=== PATIENT | female | born 1990 | race Caucasian/White ===

== ENCOUNTER 2017-01-23 08:00 | Emergency (ER) | payer BC ==
[~2017-01-23] VITALS: Ht 160 cm; Wt 71.8 kg
[2017-01-23 08:02] VITALS: TEMP 36.5; Ht 160 cm; Wt 71.8 kg
[2017-01-23] MEDS ORDERED: CYCLOBENZAPRINE HCL 10 MG TAB PO STA (08:23)
[2017-01-23] MEDS ORDERED: IBUP-1050 PO (08:23)
[2017-01-23] MEDS ORDERED: CYCL5TAB PO (08:27)
[2017-01-23] MEDS ORDERED: METH4PAK PO (08:27)
[2017-01-23] MEDS ORDERED: GABA1CAP4 PO (08:27)
--- NOTE | 2017-01-23 08:29 | EMERGENCY ROOM VISIT NOTE ---
ED Visit Note First contact with patient: 08:07 CHIEF COMPLAINT: Low back pain HISTORY OF PRESENT ILLNESS: This 26-year-old female patient presents to the emergency department, ambulatory, with a male friend, complaining of pain in the low back which began 3 days ago. The pain was gradual in onset, is now constant and worse with movement. The pain begins in her low back, and radiates down into her hips and the posterior aspect of both legs, worse on the right. Patient states last night, she didn't down to grab something out of the medicine cabinet, and if she stood back up she began experiencing "charley horse -like pain". The patient states the pain seemed to improve yesterday while at work, however this morning, the patient was barely able to walk. The patient was seen in the emergency department at a hospital in [place] last year for similar pain. She has not followed up with a primary care provider for her discomfort. The patient notes the pain as sharp and a 5/10. The patient has taken 600 mg ibuprofen this morning and used ice, without any relief of the pain. The patient denies any loss of control of their bowel or bladder functions. There has been no leg numbness or weakness, and no change in sensation. No nausea or vomiting or abdominal pain. No chest pain or shortness of breath. The patient has not had prior back injuries, but does have a history of sciatica as described previously. No dysuria or increased urinary frequency. The patient denies injury. REVIEW OF SYSTEMS: A 10 system review of systems was performed with positives and pertinent negatives listed in the history of present illness. All other systems were reviewed and are negative. ALLERGIES: None MEDICATIONS: Ceclor PMH: None SOCIAL HISTORY: The patient recently moved to the area. She is currently working in a warehouse doing physical labor. Denies drug, alcohol, tobacco use. PHYSICAL EXAM: VITALS: Vitals are noted on the nurse's note and reviewed by myself. Vital signs stable. GENERAL: This is a 26-year-old female, in no acute distress, nondiaphoretic, well-developed well-nourished. SKIN: The skin was without rashes, erythema, edema, or bruising. Capillary refill less than 2 seconds. NECK: Supple without nuchal rigidity. No cervical spine tenderness. No paraspinous muscle tenderness. HEART: Regular rate and rhythm without murmurs gallops or rubs. LUNGS: Clear to auscultation bilaterally without wheezes, rales or rhonchi. ABDOMEN: Positive bowel sounds x 4. Normal tympanic percussion. Soft, nontender, without masses or organomegaly. Menendez sign negative. MUSCULOSKELETAL: No muscle atrophy, erythema, or edema noted of the back. There is no tenderness over the lumbar spinous processes. There is mild tenderness over the paraspinous muscles bilaterally. There is no tenderness over the thoracic spine or paraspinous muscles. There are no muscle spasms present. The patient is slow to move around with maximum tenderness with moving from a lying to a sitting position. Positive straight leg raise test on the right. NEURO: Patient was alert and oriented to person place and time. Normal sensation to light and sharp touch. Deep tendon reflexes 2+ in the lower extremities. Dorsalis pedis pulse 2+ bilaterally. Strength 5/5 and equal in the bilateral lower extremities. EMERGENCY DEPARTMENT COURSE: The patient was seen and evaluated as above. I discussed with her treatment for sciatica, and encouraged her to follow up outpatient with a PCP. The patient states she just moved to the area and does not have a local doctor. She states she does not know if she has insurance at this time. I offered to have our caseworkers help provide the patient with options for getting established with a PCP, and the patient began crying. She states she does not have the money to see a doctor and states that Physical Therapy is just a waste of time and money, as she had a poor experience previously. The patient is agreeable to talking with the bell valet, and I did discuss the patient with her. The patient was given 10 mg cyclobenzaprine in the emergency department, and did report mild improvement in her symptoms. The patient was discharged home in good condition. The patient's BP was monitored throughout her care and was normal. DIFFERENTIAL DIAGNOSIS: Lumbar strain, fracture, sciatica, disc protrusion, degenerative disc disease, malignancy, and others DIAGNOSIS: Lumbar strain with sciatica DISCHARGE INSTRUCTIONS AND TREATMENT: You have been treated in the Emergency Department for Back Pain. You have been prescribed gabapentin to be used for pain control. This is not a narcotic medication, however, this may make you sleepy, and you should not take this medication and go to work or drive until you know how it will affect you. This medication works well when you take it regularly. You have been prescribed Flexeril (cyclobenzaprine) 1-2 tabs orally, three times per day. Do NOT exceed 30 mg (6 tabs) per day. Take your first dose at bedtime as it can make you drowsy. Always take all medications as prescribed. Do not take any NSAIDs (ibuprofen, naproxen, Motrin, Aleve, Advil) while taking Medrol Dosepak. You have been prescribed a Medrol Dosepak. This is a steroid which will help decrease your inflammation, redness, and itch. Take the medicine as prescribed. Take the ENTIRE 6 day course of the steroids. For pain control, you can use the following keux-awg-nqycrvu medicines (if >12 yo): Ibuprofen(Motrin, Advil) may be used for fever or pain. Use 600mg every six hours as needed. Take with food. Avoid using more than 2400mg in a 24 hour period. Do not use 2400mg per day for more than three consecutive days without physician direction. Prolonged inappropriate use can lead to stomach upset or ulcers. (AND/OR) Acetaminophen(Tylenol) may be used for fever or pain. Use 1000mg every six hours as needed. Avoid using more than 3000mg in a 24 hour period. If this is an acute injury, ice can be applied to the area of pain for the first 3 days to help decrease pain and inflammation. After the first 3 days, a heating pad can be used over the area for continued soothing relief. You should schedule a follow-up appointment in 2-3 days with your Primary Care Provider for further evaluation and treatment of your back pain. Return to the Emergency Department if your current symptoms worsen despite treatment course outlined above, or if you develop any of the following symptoms : intractable pain despite aforementioned treatment course, loss of control of your bowel or bladder, numbness or tingling in your groin, or development of a fever. Current/Historical Medications Scheduled Cyclobenzaprine Hcl (Flexeril), 1-2 TAB PO TID Gabapentin (Gabapentin), 1 CAP PO TID Ibuprofen (Advil), 400-600 MG PO Q6H Methylprednisolone (Medrol Dosepak), 0 PO DAILY Allergies Coded Allergies: Cefaclor (Unverified Allergy, Unknown, rash, 01/23/17) Vital Signs Date Time Temp Pulse Resp B/P (MAP) Pulse Ox O2 Delivery O2 Flow Rate FiO2 01/23/17 08:59 105 16 108/70 98 01/23/17 08:02 36.5 111 18 133/88 94 Room Air Medications Administered Medications (Trade) Dose Ordered Sig/Adamaris Route Start Time Stop Time Status Last Admin Dose Admin Cyclobenzaprine HCl (Flexeril Tab) 10 mg NOW STAT PO 01/23/17 08:23 01/23/17 08:24 DC 01/23/17 08:42 10 MG Departure Information Impression Primary Impression: Sciatica Dispostion Home / Self-Care Condition GOOD Prescriptions Cyclobenzaprine Hcl (FLEXERIL) 5 Mg Tab 1-2 TAB PO TID, #30 TAB PRN Prov: Joslyn Pereira PA-C 01/23/17 Methylprednisolone (MEDROL DOSEPAK) 4 Mg Eliazar 0 PO DAILY, #1 PKT Prov: Joslyn Pereira PA-C 01/23/17 Gabapentin (Gabapentin) 300 Mg Cap 1 CAP PO TID, #90 CAP Prov: Joslyn Pereira PA-C 01/23/17 Referrals No Doctor, Assigned (PCP) Patient Instructions ED Sciatica, [facility] Additional Instructions You have been treated in the Emergency Department for Back Pain. You have been prescribed gabapentin to be used for pain control. This is not a narcotic medication, however, this may make you sleepy, and you should not take this medication and go to work or drive until you know how it will affect you. This medication works well when you take it regularly. You have been prescribed Flexeril (cyclobenzaprine) 1-2 tabs orally, three times per day. Do NOT exceed 30 mg (6 tabs) per day. Take your first dose at bedtime as it can make you drowsy. Always take all medications as prescribed. Do not take any NSAIDs (ibuprofen, naproxen, Motrin, Aleve, Advil) while taking Medrol Dosepak. You have been prescribed a Medrol Dosepak. This is a steroid which will help decrease your inflammation, redness, and itch. Take the medicine as prescribed. Take the ENTIRE 6 day course of the steroids. For pain control, you can use the following hosg-mnm-fjmtcrg medicines (if >12 yo): Ibuprofen(Motrin, Advil) may be used for fever or pain. Use 600mg every six hours as needed. Take with food. Avoid using more than 2400mg in a 24 hour period. Do not use 2400mg per day for more than three consecutive days without physician direction. Prolonged inappropriate use can lead to stomach upset or ulcers. (AND/OR) Acetaminophen(Tylenol) may be used for fever or pain. Use 1000mg every six hours as needed. Avoid using more than 3000mg in a 24 hour period. If this is an acute injury, ice can be applied to the area of pain for the first 3 days to help decrease pain and inflammation. After the first 3 days, a heating pad can be used over the area for continued soothing relief. You should schedule a follow-up appointment in 2-3 days with your Primary Care Provider for further evaluation and treatment of your back pain. Return to the Emergency Department if your current symptoms worsen despite treatment course outlined above, or if you develop any of the following symptoms : intractable pain despite aforementioned treatment course, loss of control of your bowel or bladder, numbness or tingling in your groin, or development of a fever. Problem Qualifiers Primary Impression: Sciatica Laterality: right Qualified Codes: M54.31 - Sciatica, right side
[2017-01-23 08:59] VITALS: BP 108/70; PULSE 105; O2SAT 98
== END 2017-01-23 09:00 | disposition home or self-care (01) ==
LOC: C.EDB 08:02 → C.EDA 09:00
DX: S39.012A Strain of muscle, fascia and tendon of lower back, initial encounter (principal); X50.1XXA Overexertion from prolonged static or awkward postures, initial encounter; M54.31 Sciatica, right side; Y92.9 Unspecified place or not applicable